=== PATIENT | female | born 2000 | race Caucasian/White ===

== ENCOUNTER 2023-01-11 20:12 | Emergency (ER) | payer BC ==
[2023-01-11 20:40] VITALS: TEMP 98.1
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
[2023-01-11 21:42] LABS: BASOPHIL % 0.5 % (0.0-0.4); Basophil (Absolute #) 0.06 x10^3/uL (0-0.4); Eosinophil % 0.6 % (0.00-5.0); Eosinophil (Absolute #) 0.07 x10^3/uL (0-0.5); Hematocrit 39.7 % (35-47); Hemoglobin 12.9 g/dL (12.0-16.0); IMMATURE GRAN # 0.04 x10^3u/L (0.00-0.03); IMMATURE GRAN % 0.4 % (0.00-0.4); Lymphocyte (Absolute #) 3.35 x10^3/uL (1.0-4.6); Lymphocytes % 29.9 % (24.0-44.0); Mean Cell Volume 88.4 fL (78-100); Mean Corpuscular Hemoglobin 28.7 pg (26-32); Mean Corpuscular Hgb Concent. 32.5 g/dL (32-36); Mean Platelet Volume 10.4 fL (7.5-11.0); Monocyte (Absolute #) 0.49 x10^3/uL (0.0-1.3); Monocytes % 4.4 % (0.0-12.0); Neutrophil % 64.2 % (36.0-66.0); Platelet Count 412 x10^3/uL (150-450); Red Blood Count 4.49 x10^6/uL (4.1-5.4); Red Cell Distribution Width 12.4 % (11.5-14.0); White Blood Count 11.2 x10^3/uL (4.0-10.5)
[2023-01-11 22:02] LABS: Appearance Clear (Clear); Bacteria Rare /HPF (None Seen); Bilirubin Negative (Negative); Blood Negative (Negative); Epithelial Cells Few /HPF (None Seen); Glucose, Urine Negative (Negative); Hyaline Casts NONE SEEN /LPF (0-2); Ketones 15 (Negative); Leukocyte Esterase Trace (Negative); Nitrite Negative (Negative); Ph 5.5 (4.6-8.0); Protein,Urine Dip Negative (Negative); RBC 0-2 /HPF (0-5); Specific Gravity 1.015 (1.005-1.030); Urobilinogen 0.2 mg/dL (0.2)
[2023-01-11 22:03] LABS: AMYLASE 56 U/L (30-110); LIPASE 59 U/L (23-300)
[2023-01-11 22:03] LABS: HCG SERUM TEST NEGATIVE (NEGATIVE)
[2023-01-11 22:04] LABS: ALBUMIN 4.5 g/dL (3.5-5.0); ALKALINE PHOSPHATASE 69 U/L (38-126); ANION GAP 14.3 MEQ/L (5-15); BLOOD UREA NITROGEN 10 mg/dL (7-17); CHLORIDE 102 mmol/L (98-107); Calcium 9.7 mg/dL (8.4-10.2); Carbon Dioxide 28 mmol/L (22-30); Creatinine 1 0.71 mg/dL (0.52-1.04); EST GLOMERULAR FILTRATION RATE > 60.0 ML/MIN; Glucose 86 mg/dL (74-106); Potassium 4.2 mmol/L (3.5-5.1); SGOT/AST 22 U/L (14-36); SGPT/ALT 20 U/L (0-35); SODIUM 140 mmol/L (137-145); Total Protein 7.1 g/dL (6.3-8.2)
[2023-01-11] MEDS ORDERED: TYLENOL 325 MG PO ONE (22:07)
[2023-01-11 22:09] LABS: ADD URINE CULTURE? YES (NO)
[2023-01-11] MEDS ORDERED: TYLENOL 325 MG ONE (22:13)
--- NOTE | 2023-01-11 23:55 | XRAY ---
CLINICAL HISTORY:headache COMPARISON:None. TECHNIQUE:An axial non-contrast CT scan of the brain was performed from the skull base to the high parietal region. Dose: CTDI 53.92mGy DLP 977.56 mGy*cm FINDINGS: The visualized brain parenchyma shows herron-white matter differentiation. No midline shift. No intracerebral or extra axial hematoma. Normal size and configuration of the cerebral ventricles. Normal CT appearance of the posterior fossa structures. The osseous structures in the skull base are unremarkable. No definite calvarium fractures. Scanned paranasal sinuses and mastoid air cells are clear. IMPRESSION: Unremarkable non-enhanced CT study for the brain. Electronically Signed by: Bart Lind MD. (01/11/2023 22:55:04 PRESS SET UP PERSON)
--- NOTE | 2023-01-12 00:03 | XRAY ---
CLINICAL HISTORY:pain COMPARISON:None. TECHNIQUE:Multiple axial sections of the cervical spine were acquired without intravenous contrast administration. Reformatted images were obtained. Dose: CTDI 23.43 mGy DLP 421.29mGy*cm FINDINGS: Straightening of normal cervical lordosis, likely due to associated muscle spasm or sprain. Congenital nonfusion of the posterior arch of C1. The possibility of fracture appears less likely. The vertebral body heights and disc spaces are maintained. No fracture or traumatic subluxation. The posterior elements are within normal CT limits. Grossly normal paraspinal soft tissues. Multiple prominent lymph mildly enlarged cervical lymph nodes. For reference, the largest at level 4 measures 0.6 X 0.6 cm, and on the right 0.8 X 0.5 cm. IMPRESSION: 1. Straightening of normal cervical lordosis, likely due to associated muscle spasm or sprain. 2. No fracture or traumatic subluxation. Electronically Signed by: Bart Lind MD. (01/11/2023 23:02:55 A[employer]P MECHANIC)
[2023-01-12 01:43] VITALS: BP 112/85; PULSE 82; RESP 17; O2SAT 97
--- NOTE | 2023-01-12 07:14 | XRAY ---
Indication: Chest pain. Comparison: None PA/lateral chest demonstrates normal heart, lungs, and bony thorax.
== END 2023-01-12 01:49 | disposition home or self-care (01) ==
LOC: ED 20:12
DX: S16.1XXA Strain of muscle, fascia and tendon at neck level, initial encounter (principal); V43.51XA Car driver injured in collision with sport utility vehicle in traffic accident, initial encounter; R51.9 Headache, unspecified; R07.9 Chest pain, unspecified
CPT/HCPCS: 36415; 70450; 71046; 72125; 80053; 81001; 82150; 83690; 84484; 84703; 85025; 87086; 93005; 99284; L0120; A9270-GY